=== PATIENT | female | born 1995 | race Caucasian/White ===

== ENCOUNTER 2020-11-25 16:28 | Outpatient (CLI) | payer OTHER | END 2020-11-25 16:29 | disposition home or self-care (01) | LOC: COV 16:28 | PROVIDERS: ATTEND Family Medicine | DX: R05 Cough (principal); R06.02 Shortness of breath; R53.83 Other fatigue; R07.0 Pain in throat; R43.9 Unspecified disturbances of smell and taste; Z20.822 Contact with and (suspected) exposure to COVID-19 ==